=== PATIENT | female | born 1960 | race Caucasian/White ===

== ENCOUNTER 2023-12-25 12:35 | Outpatient (CLI) | payer BC, SELFPAY ==
--- NOTE | 2023-12-25 12:58 | ECG_ITS ---
Measurements Intervals [place] Rate: 72 P: 63 HI: 146 QRS: 2 QRSD: 93 T: 34 QT: 356 QTc: 391 Interpretive Statements SINUS RHYTHM POSSIBLE LEFT ATRIAL ENLARGEMENT CANNOT RULE OUT SEPTAL INFARCT, AGE INDETERMINATE BORDERLINE ST ABNORMALITY- ANTEROLATERAL LEADS BASELINE ARTIFACT- II, III, AVF ABNORMAL ECG NO PREVIOUS ECG AVAILABLE FOR COMPARISON Electronically Signed On 12-25-2023 18:41:05 CDT by Otto Sheehan D.O.
[2023-12-25 13:06] LABS: Anion Gap 6 mmol/L (8-16); Blood Urea Nitrogen 11 mg/dL (7-17); Calcium 9.3 mg/dL (8.4-10.2); Carbon Dioxide 28 mmol/L (22-30); Chloride 98 mmol/L (98-107); Estimated Glomerular Filt Rate > 60; Glucose 90 mg/dL (65-110); Potassium 3.4 mmol/L (3.4-5.0); Sodium 132 mmol/L (137-145)
== END 2023-12-25 12:36 | disposition home or self-care (01) ==
LOC: ANHLAB 12:41
PROVIDERS: Visit Provider Anesthesiology
DX: Z01.818 Encounter for other preprocedural examination (principal); I10 Essential (primary) hypertension; Z79.899 Other long term (current) drug therapy
CPT/HCPCS: 36415; 80048; 93005

== ENCOUNTER 2023-12-30 02:17 | Day surgery (SDC) | payer OTHER, SELFPAY ==
[2023-12-23 08:59] VITALS: BMI 23.8
--- NOTE | 2023-12-23 09:03 | PC.NURSE ---
Report to the Outpatient Waiting Room, entrance under the green pavilion located off [facility], at time 7:30 on date 12/30/23. Planned Procedure Time: 9:30. Time changes happen often and if your time is changed the preop area will call you the afternoon before. - You and your visitor will be asked to self-screen and do not enter if you have any COVID symptoms. - A mask is optional within the hospital at this time. Patients may have clear liquids (water, carbonated beverages, clear teas, apple juice) until 3 hours prior to surgery (6:30) with a maximum of 20 ounces. - No food from midnight until time of surgery Take the following medications with a SIP of water the morning of surgery: WELLBUTRIN, LEXAPRO DO NOT STOP ANY OF YOUR OTHER PRESCRIPTION MEDICATIONS PRIOR TO SURGERY ?EXCEPT THE FOLLOWING Medications to discontinue per physician: VITAMINS/SUPPLEMENTS Date to take last dose: 12/26/23 HAS ALREADY STOPPED ZEPBOUND Please no make-up, nail romanian, hairspray, perfume, deodorant, or body powder the day of surgery. No jewelry (including any body piercings) or valuables the day of surgery, leave them at home. Please take a shower or bath the night before, or the morning of, surgery with an antibacterial soap. Wear comfortable, loose fitting clothing. - Jewelry must be removed prior to entering the operating room. Rings and piercings that are not removed may be cut off. - The hospital will not accept responsibility for valuables. - Please leave all valuables, including medications, at home the day of surgery. If you are going home after surgery, a licensed ambulance driver must drive you home. - NO public transportation without another adult if you receive anesthesia. - We recommend that an adult stay with you for 24 hours following discharge. - We also recommend that you do not drive, make important decision, drink alcoholic beverages, or take any drugs that were not prescribed by your health care provider for at least 24 hours after your discharge time. Follow any additional instructions given to you from your surgeon. If you or anyone in your household have experienced Covid symptoms in the past week, please notify your surgeon or the nurse liaison at the phone number below for possible testing. Telephone instructions given to PT Krista RICHARDSON and asked if any additional questions and then verbalized understanding. Patient advised to call surgeon office or pre surgery nurse liaison [phone] if any additional questions.
[2023-12-30] VITALS (8 sets, daily range): BP systolic 127–172; BP diastolic 71–95; PULSE 69–87; RESP 14–16; TEMP 36.4–36.6; O2SAT 91–100
[2023-12-30] MEDS: LACTATED RINGERS 1,000 ML 30 ML IV CONT ×2 (08:14→11:29)
--- NOTE | 2023-12-30 08:37 | WPDHPUPDATE1 ---
History and Physical Update Update Date/Time: 12/30/23 08:37 History and Physical has been reviewed, including an updated exam of the patient. There are NO changes in the patient's condition. Risks, benefits, and alternatives have been discussed and questions answered. Patient agrees to proceed with procedure.
--- NOTE | 2023-12-30 08:37 | W.PM.PROC2 ---
Procedure Note - Detailed Date of Procedure 12/30/23 Pre-op Diagnosis breast ptosis, micromastia Post-op Diagnosis Same Procedure Performed Augmentation Mastopexy with Galaflex Surgeon Harsh Garcia MD Anesthesia General Findings Inverted T Superior Medial Pedicle Bilateral Beto SoftTouch 405cc Right - REF# [facility] SN [id number] Left - REF# [facility] SN [id number] Left breast mass noted. Approximally 1.5cm, firm, irregular. Description of Procedure She is here today for bilateral breast augmentation mastopexy. Previously and again today the risks, benefits, alternatives were discussed in extensive detail. I wanted her to be very realistic about the risks involved as well as expectations. We discussed aftercare and what to monitor for. Made sure answered all of her questions to her satisfaction today and consent was obtained. Marked in the preoperative holding area with their verification. The patient was taken to the operating room placed supine on the operating table. Anesthesia was provided by anesthesiology. A surgical time-out was taken. We cleansed the skin and 1% lidocaine and 0.25% Marcaine with epinephrine was used anesthetize as a field block. She was prepped and draped in a standard sterile fashion. Tegaderm nipple Sue were placed. A 15 blade used to make an incision just superior to the inframammary fold leaving a cusp of de-epithelized tissue at the t junction. Dissection was continued until the chest wall as identified. I incised the pectoralis major along its inferior border and completely released the inferior border leaving the medial border intact. I created a subpectoral pocket in the appropriate dimensions based on our preoperative planning for the implant. I then copiously irrigated with saline solution and verified a strict hemostasis. Next the use a triple antibiotic and Betadine containing solution to irrigate the pocket. I washed my gloves with the triple antibiotic and Betadine solution. We washed the implant immediately upon opening it with this solution and only opened it when we needed it. I used implant funnel and no-touch technique. The implant was introduced into the pocket using the funnel. Having verified positioning of the implant this was closed using 2-0 PDS. I tailor tacked the breast into position. Placed her in a sitting position. Verified the nipple-areolar location based on preoperative planning as well as intraoperative observations and measurements in full agreement. She was placed supine. I de-epithelialized the pedicle. I then removed the inferior central portion of the breast need making sure the implant was well protected. I elevated medial and lateral tissue flaps as well for planned closure. Galaflex was soaking on the back table in a betadine solution. Trimmed and sutured into place with 2-0 Vicryl. I closed along the IMF with 2-0 Stratafix. Along the vertical with 2-0 PDS. I closed around the areola with 3-0 strata fix. 3-0 Monocryl along the vertical. 3-0 Stratafix along the IMF. I finally closed everything with running subcuticular 4-0 Monocryl and tissue glue. Fluffs and surgical bra were placed. Estimated Blood Loss 50 Drains No Packing No Pathology Yes (Left breast mass) Complications No immediate complications Condition Stable Disposition PACU
--- NOTE | 2023-12-30 08:43 | WPDANESEPPF ---
Anes - Initial Pre Proc Eval Procedure: Operation Date: 12/30/23 09:30 Proposed Procedures p Bilateral Breast Augmentation, - Harsh Garcia MD s Bilateral Breast Mastopexy with Galaflex - Harsh Garcia MD Date/Time: 12/30/23 08:43 Surgeon: Harsh Garcia MD Pre Op Diagnosis: breast ptosis, micromastia Patient Data Age: 63 Gender: F Height: 1.57 m Weight: 61.1 kg Last Vital Signs Temp 97.9 F 12/30/23 08:36 Pulse 75 12/30/23 08:36 Resp 16 12/30/23 08:36 BP 130/76 12/30/23 08:36 Pulse Ox 100 12/30/23 08:36 O2 Del Method Room Air 12/30/23 08:36 Allergies Allergy/AdvReac Type Severity Reaction Status Date / Time No Known Allergies Allergy Verified 12/30/23 07:45 Home Medications Medication Instructions Recorded Confirmed Type atorvastatin 10 mg tablet 10 mg PO DAILY 12/23/23 12/30/23 History bupropion HCl 300 mg 24 hr tablet, 300 mg PO DAILY 12/23/23 12/30/23 History extended release cholecalciferol (vitamin D3) 125 125 mcg PO DAILY 12/23/23 12/30/23 History mcg (5,000 unit) tablet (Vitamin D3) coQ10 (ubiquinol) 200 mg capsule 200 mg PO DAILY 12/23/23 12/30/23 History escitalopram oxalate 10 mg tablet 5 mg PO DAILY 12/23/23 12/30/23 History lisinopril 20 1 tablet PO DAILY 12/23/23 12/30/23 History mg-hydrochlorothiazide 25 mg tablet lorazepam 0.5 mg tablet 0.5 mg PO HS PRN Anxiety 12/23/23 12/30/23 History ondansetron 4 mg disintegrating 4 mg PO PRN PRN Nausea 12/23/23 12/30/23 History tablet tirzepatide (weight loss) 7.5 7.5 mg subcut WEEKLY 12/23/23 12/23/23 History mg/0.5 mL subcutaneous pen injector (Zepbound) Laboratory Tests 12/30/23 07:50 Cotinine Pending Patient hx anesthesia problems: none Family hx anesthesia problems: none Results Review: All pre-operative results and documents have been reviewed as part of the pre-operative evaluation. [facility] Social History Social History Smoking status: Never smoker Alcohol intake: current Drinks per week: 14 Alcohol use details: 2 GLASSES OF WINE/DAY Substance use: never Substance use type: does not use Living arrangements: with family Spiritual care concerns: No Anes - Eval Final PreProcedure Day of Procedure 12/30/23 08:43 Patient weight: normal Heart: regular rate and rhythm Lungs: clear to auscultation Airway: Mallampati scale class II Neurological: alert and oriented Last oral intake: >/= 8 hours ASA classification: II Emergent: no Anesthetic plan: proceed Anesthesia type and monitoring: general LMA and standard monitoring Results Review: All pre-operative results and documents have been reviewed as part of the pre-operative evaluation. Informed Consent: The patient's anesthetic plan and its attendant risks and benefits were discussed with the patient/family/POA. Questions were solicited and answers provided to the satisfaction of the patient/family/POA.
[2023-12-30] MEDS: ceFAZolin 2 GM/D5W 50 ML 2 GM/50 ML BAG IVPB (08:52)
[2023-12-30] MEDS: NACL 0.9% IRRIG POUR BOTTLE 900 ML, GENTAMICIN SULFATE INJ 160 MG, ceFAZolin 2 GM, POVI... IRRIGATION (08:52)
[2023-12-30] MEDS: LIDO 1%/EPINEPHRINE 1:100,000 50 ML VIAL 30 ML INFILTRATE (08:52)
[2023-12-30] MEDS: TRANEXAMIC ACID 1,000MG/ISO100 1,000 MG/100 ML BAG 200 MG IVPB (09:00)
[2023-12-30 09:08] LABS: Urine Cotinine NEGATIVE
[2023-12-30] MEDS: BUPivacaine HCL 0.25% PF 30 ML VIAL INFILTRATE (09:39)
--- NOTE | 2023-12-30 09:40 | SUR.OPER ---
0940: Dr. Garcia soaked Galaflex implant with antibiotic irrigation mixed in pharmacy: 1L NS, 2GM Ancef, 160MG Gentamycin, 100,00 units Bacitracin, 100ml Betadine
[2023-12-30] MEDS: fentaNYL CITRATE INJ (*CRX) 100 MCG/2 ML VIAL 25 MCG IV PUSH ×2 (11:44→11:47)
[2023-12-30] MEDS: oxyCODONE HCL (*CRX) 5 MG TAB IR PO (12:45)
[2023-12-30] MEDS: ONDANSETRON INJ 4 MG/2 ML VIAL IV PUSH (12:46)
== END 2023-12-30 13:24 | disposition home or self-care (01) ==
PROVIDERS: Visit Provider Surgery Plastic and Reconstructive Surgery
PROC: (CPT 19325; principal; 2023-12-30 09:30)
PROC: (CPT 19316; 2023-12-30 09:30)
DX: Z41.1 Encounter for cosmetic surgery (principal); N64.81 Ptosis of breast; N64.82 Hypoplasia of breast; N64.89 Other specified disorders of breast; Z79.85 Long-term (current) use of injectable non-insulin antidiabetic drugs
CPT/HCPCS: 19325; 19316; 15777 ×2; 19120; 80307; 88307; A9270; J0171; J0690; J1100; J1170; J1580; J2250; J2405; J2704; J3010; J7120

== ENCOUNTER 2024-03-01 19:02 | Outpatient (NON) | payer BC, SELFPAY | END 2024-03-01 19:03 | disposition home or self-care (01) | LOC: ANHLAB 19:04 | PROVIDERS: Visit Provider Surgery Plastic and Reconstructive Surgery | DX: S21.009A Unspecified open wound of unspecified breast, initial encounter (principal); X58.XXXA Exposure to other specified factors, initial encounter | CPT/HCPCS: 87070; 87075; 87147; 87181; 87205 ==